=== PATIENT | male | born 1970 | race Caucasian/White ===

== ENCOUNTER 2017-05-04 13:00 | Inpatient (IN) | payer OTHER ==
[~2017-05-04] VITALS: Ht 190.5 cm; Wt 189.9 kg
--- NOTE | ~2017-05-04 | OR ---
PATIENT'S NAME: PHAN HEATH [facility] AGE: 47 Y [address] ROOM: [facility] [address] [place], [place] [address] LOCATION: [facility] ADMIT DATE: 05/04/2017 OR/Procedure Report DISCHARGE DATE: 05/06/2017 FAMILY PHYSICIAN: Lui Watkins MD ATTENDING PHYSICIAN: Clementina Riley SURGEON: Clementina Riley MD PACKAGE DELIVERY DRIVER: Tamara Earl. DATE OF PROCEDURE: 05/05/2017 Corrected Copy - Date of Service Revised- 05/12/17-[facility] [place] PREOPERATIVE DIAGNOSIS: Left L4-5 disk herniation. POSTOPERATIVE DIAGNOSIS: Left L4-5 disk herniation. PROCEDURES PERFORMED: 1. Left L4-5 hemilaminotomy and medial facetectomy for decompression of neural elements with diskectomy. 2. Use of intraoperative microscope. ANESTHESIA: General. ANESTHESIA PROVIDER: Chandler Barboza MD HISTORY: The patient is a 47-year-old gentleman who presented with left-side low back pain going down to the top of the left leg. He also developed a left footdrop. MRI showed a left L4-5 herniated disk with sequestrated fragment behind the L5 vertebral body. Surgery was recommended to reduce the risk of permanent neurological deficit. I explained to the patient that even with surgery, his footdrop may or may not recover, but with surgery, there was a chance it could recover. The patient was agreeable to surgery. He was taken to the operating room today for the procedure. PROCEDURE IN DETAIL: In the operating room, the patient was placed in the supine position. Anesthesia was induced, and he was intubated. He was rolled to a prone position on the Rodney table, taking care to protect all pressure points. The incision line was marked out in the midline of his lower back. He had had prior microdiskectomy, and we used a part of the original incision for this procedure also. Self-retaining retractors were placed. The incision was then deepened to the fascial layer, and the fascia was opened. The tips of the spinous processes were exposed. The paraspinous muscles were dissected off the spinous processes and laminae on the left side of L3, L4, and L5. The interlaminar space at L4-5 was cleaned out. Intraoperative x-ray was obtained to verify our levels. The Super-slide retractors were placed to help maintain visualization. Microscope was brought in, and under microscopic vision, the adjacent edges of PATIENT'S NAME: PHAN HEATH [facility] AGE: 47 Y [address] ROOM: [id number] [place] [id number] LOCATION: [facility] ADMIT DATE: 05/04/2017 OR/Procedure Report DISCHARGE DATE: 05/06/2017 FAMILY PHYSICIAN: Lui Watkins MD ATTENDING PHYSICIAN: Clementina Riley the left L4 and L5 laminae were drilled off. The medial facet connecting them was also drilled down. The ligamentum flavum was removed, and the dura was exposed. Further removal of the medial facet exposed the nerve roots. The nerve root was then mobilized toward the midline using a #4 [place]. We began to see the sequestrated disk fragments at this point. The nerve root retractor was used to hold the nerve root against the dura. The small pituitary rongeur was used to fish out the pieces of sequestrated disk. We got a few a fair-sized pieces of disk without even cutting into the annulus. The annulus was bulging slightly, and this was incised with a #15 blade. The pituitary rongeur was used to remove some more disk material. The Dull nerve hook was then used to explore the ventral surface of the dura to ensure that there were no remaining herniated or sequestrated pieces of disk. Having completed the decompression, foraminotomy was carried out. Again, the bald nerve hook was used to probe the foramen, and it was very free. Hemostasis was achieved. The incision was washed out with irrigation. Some ropivacaine was placed in the epidural space. The incision was then closed with appropriate suture materials. A sterile dressing was applied. The patient was rolled back to a supine position. His anesthesia was reversed. He was extubated and taken to the recovery room to complete his recovery. I was present at and performed every aspect of this procedure, assisted at some stages by operating room nurses. There were no apparent intraoperative complications. Swabs, needles, and instruments were all accounted for at the end of the case. Estimated blood loss was less than 100 mL. There was no reason for blood transfusion. I expect the patient to benefit from this procedure, although it is still uncertain whether his footdrop will come back or not. This was a fairly challenging procedure owing to the patient's body habitus. CLEMENTINA RILEY MD CNO/modl /[id number] PATIENT'S NAME: PHAN HEATH [facility] AGE: 47 Y [address] ROOM: [place] [address] LOCATION: [facility] ADMIT DATE: 05/04/2017 OR/Procedure Report DISCHARGE DATE: 05/06/2017 FAMILY PHYSICIAN: Lui Watkins MD ATTENDING PHYSICIAN: Clementina Riley CC: Lui Watkins MD Corrected Copy - Date of Service Revised- 05/12/17-jmo d: 05/06/17 1127 t: 05/13/17 1645, OPERATIVE SUMMARY
--- NOTE | ~2017-05-04 | HP ---
PATIENT'S NAME: PHAN HEATH [facility] AGE: 47 Y [address] ROOM: [place] [address] LOCATION: [facility] ADMIT DATE: 05/04/2017 History & Physical DISCHARGE DATE: FAMILY PHYSICIAN: Lui Watkins MD ATTENDING PHYSICIAN: Clementina Coello DATE OF SERVICE: 05/04/2017 The patient referred by Dr. Watkins from [place]. REASON FOR REFERRAL: Back pain and footdrop. PATIENT IDENTIFICATION: Phan Heath is a 47-year-old male. PRESENTING COMPLAINT: Back pain and left footdrop. HISTORY OF PRESENT ILLNESS: The patient states that he started feeling left-sided back pain about last , four days ago. The pain would go to the upper part of his leg, but did not travel down the entire leg to his foot. The patient had chiropractic adjustments yesterday and after that, he noticed that he had a left footdrop. He, therefore, saw Dr. Watkins today, and Dr. Watkins referred the patient to [facility] for evaluation and treatment. The patient's pain is a little bit better than it was in the beginning, but he is still unable to dorsiflex his left foot. PAST MEDICAL HISTORY: Significant for prior lumbar diskectomy performed close to 20 years ago. He did well after that procedure. There is no history of cardiac or respiratory problems. CURRENT MEDICATIONS: Please see chart. ALLERGIES: PLEASE SEE CHART. FAMILY HISTORY: There is no family history relevant to present problems. SOCIAL HISTORY: The patient is a nonsmoker and a nondrinker. PATIENT'S NAME: IVANA DAYTON [facility] AGE: 47 Y [address] ROOM: [address] [address] LOCATION: [facility] ADMIT DATE: 05/04/2017 History & Physical DISCHARGE DATE: FAMILY PHYSICIAN: Lui Watkins MD ATTENDING PHYSICIAN: Clementina Coello REVIEW OF SYSTEMS: A 10-point review of systems was carried out. The only abnormal finding was as described in the history of present illness. PHYSICAL EXAMINATION: GENERAL: The patient is a healthy-looking male, who was alert and cooperative through the examination. VITAL SIGNS: Stable. NEUROLOGIC: His speech is normal. Cranial nerves: No deficits seen. Motor examination: The patient has normal strength in all the major muscle groups of his upper extremities and right lower extremity. In the left lower extremity, he has a left footdrop. He is unable to dorsiflex his left foot or pull up his left big toe. He can plantar flex normally. Gait not tested. CARDIOVASCULAR SYSTEM: Heart sounds are present. RESPIRATORY SYSTEM: The patient is not short of breath at bedside. EXTREMITIES: No cyanosis or clubbing. SKIN: No skin rashes or skin masses. HEENT: His head is atraumatic. Eyes and ears: No evidence of trauma. BACK: There is an incision in his lower back corresponding to where he had the prior diskectomy. LABORATORY DATA: Review of imaging studies: The patient has had a lumbar spine MRI performed today. The MRI shows a fairly large left-sided L4-5 disk herniation. There appears to be a sequestrated fragment as well. ASSESSMENT: A 47-year-old male with left L4-5 disk herniation causing a left footdrop. MEDICAL DECISION MAKING: I discussed the imaging findings with the patient, and I explained to him that this was likely the cause of his symptoms. I have recommended lumbar microdiskectomy to the patient. The rationale for the surgery would be to relieve pressure from the nerve root, and the benefits would be to help the footdrop to recover. The risks of the operation include possible delay to inability of the nerve to recover and thereby having a persistent footdrop. There is a small risk of spinal fluid leak, small risk of infection, and a small risk of recurrence. The alternatives are to observe him for a while and see if he improves. But the risk in this is that he may end up never improving, and there will be the question of whether early surgery could have helped him improve sooner. The patient understands these benefits and risks and has agreed to have surgery done. I will schedule him for lumbar microdiskectomy tomorrow. PATIENT'S NAME: PHAN HEATH [facility] AGE: 47 Y [address] ROOM: [id number] [place], [place] [address] LOCATION: [facility] ADMIT DATE: 05/04/2017 History & Physical DISCHARGE DATE: FAMILY PHYSICIAN: Lui Watkins MD ATTENDING PHYSICIAN: Obasi,Clementina N MD WISAM WORRELL/modl /[id number] CC: Lui Watkins MD D: [id number] T: [id number] HISTORY & PHYSICAL
--- NOTE | ~2017-05-04 | DS ---
PATIENT'S NAME: PHAN HEATH [facility] AGE: 47 Y [address] ROOM: [place] [address] LOCATION: [facility] ADMIT DATE: 05/04/2017 Discharge Summary DISCHARGE DATE: 05/06/2017 FAMILY PHYSICIAN: Lui Watkins MD ATTENDING PHYSICIAN: Clementina Coello REASON FOR ADMISSION: The patient was admitted with low back pain and left footdrop. TREATMENT RENDERED: The patient had an MRI scan which showed a left L4-5 disk herniation, likely because of the footdrop. Surgery was recommended to the patient. He was taken to the operating room on May 05, 2017, and underwent a left L4-5 microdiskectomy. The surgery was uncomplicated. His postoperative course has been uneventful. He is ambulating independently, although he still has a footdrop. His incision is intact and clean. The dressing was changed. DISMISSAL PLAN: The patient is being discharged home today and will be followed up in 2 weeks' time in the outpatient clinic. His pain is controlled. FINAL DIAGNOSES: 1. Herniated left L4-5 disk. 2. Left footdrop. CLEMENTINA COELLO MD CNO/modl /[id number] CC: Lui Watkins MD d: 05/07/17 0216 t: 05/13/17 1648, DISCHARGE SUMMARY
[2017-05-04] MEDS ORDERED: XANAX0.5 MG PO (14:29)
[2017-05-04] MEDS ORDERED: ZOLOFT100 MG PO (14:30)
[2017-05-04] MEDS ORDERED: LEVOTHROID (S137 MCG PO (14:30)
[2017-05-04] MEDS ORDERED: NORCO 5-325 TA1 EACH PO (14:31)
[2017-05-04] MEDS ORDERED: ADVIL200 MG PO (14:32)
[2017-05-04] MEDS ORDERED: [UNRECOGNIZED DRUG - OTHER] PO (14:33)
[2017-05-04] MEDS ORDERED: JUICE PLUS PO (14:34)
--- NOTE | 2017-05-04 15:20 | NUR ---
Pt is 47 y/o male admit for acute left foot drop/back pain for . pt alert and oriented x3. No allergies. Pt resides at home with his . Hx depression,anxiety,hypothyroidism. Pt was supposed to come here for an MRi and was admitted.
--- NOTE | 2017-05-04 16:48 | NUR ---
Significant Event: Admitted for L) foot drop and back pain. Patient had went to the chiropractor yesterday and noticed that he could not dorsiflex. He has no numbness or tingling in left foot. Is going to have MRI. Complains of some L) hip pain. [place] given for pain. Had back surgery in 1997. VSS. CSM WNL. SBA assist. Follow up:
[2017-05-04 20:02] LABS: BASOPHIL # 0.1 K/uL (0.0-0.2); BASOPHIL % 1.3 %; EOSINOPHIL # 0.1 K/uL (0.0-0.5); EOSINOPHIL % 1.4 %; HEMATOCRIT 43.6 % (37.0-53.0); HEMOGLOBIN 14.3 g/dL (12.0-17.0); IMMATURE GRANULOCYTE % 0.3 %; LYMPHOCYTE # 2.6 K/uL (0.8-4.0); LYMPHOCYTE % 29.9 %; MCH 31.2 pg (27.0-34.0); MCHC 32.8 gm/dL (32.0-36.5); MONOCYTE # 0.6 K/uL (0.0-1.0); MONOCYTE % 6.9 %; MPV 10.1 fl (9.4-12.4); NEUTROPHIL # (ANC) 5.3 K/uL (1.4-9.0); NEUTROPHIL % 60.2 %; NRBC % 0 /100WBC (0-0.00); PLATELET COUNT 274 K/uL (150-450); RBC 4.59 M/uL (4.00-6.00); RDW-CV 12.5 % (11.9-14.6); WBC 8.8 K/uL (4.0-11.0)
[2017-05-04 20:10] LABS: INR - (THERAPEUTIC) 0.95 (0.92-1.07); PTT 28 SECONDS (25-32)
[2017-05-04 20:19] LABS: ALBUMIN 3.5 gm/dL (3.5-5.0); ALK PHOS 97 IU/L (33-138); ALT 53 IU/L (12-78); ANION GAP 10.3 (10.0-19.0); AST 39 IU/L (10-40); BLOOD UREA NITROGEN 17 mg/dL (6-24); CALCIUM 8.9 mg/dL (8.5-10.5); CHLORIDE 106 mMol/L (96-110); CO2 31 mMol/L (22-32); CREATININE 1.1 mg/dL (0.6-1.3); ESTIMATED GFR (MDRD EQUATION) > 60; POTASSIUM 4.3 mMol/L (3.7-5.1); SODIUM 143 mMol/L (135-145); TOTAL BILIRUBIN 0.2 mg/dL (0.0-1.5); TOTAL PROTEIN 7.1 g/dL (6.0-8.4)
--- NOTE | 2017-05-05 05:08 | NUR ---
Significant Event: Patient is alert and oriented x3. Follows commands. PERRLA. VSS. Denies MARTINEZ. Pain is localized to the right hip. Numbness to the left great toe. SR-no edema, 2+ pulses. Room air-clear. NPO for surgery. Last BM 05/04-active x4. CHG shower given. Up with SBA. PIV in left FA-NS started at 75 ml/hr. Refused hospital CPAP-asked patient to have daughter bring his from home. Follow up: Surgery today around 1100.
--- NOTE | 2017-05-05 19:13 | NUR ---
Pt left for OR at 1000. Remained NPO, VSS. MS 4mg IV at 0650 for pain 4-7/10 in L groin/hip area. Reported relief. Pt has good plantar flexion, numbness to Great toe, foot drop noted to L foot. Spouse at bedside.
--- NOTE | 2017-05-06 04:53 | NUR ---
Significant Event: Patient is alert and oriented x3. VSS. Denies MARTINEZ. Pain has been controlled with PO norco. Numbness to the left toes has decreased- foot drop has improved. SR-2+ pulses- no edema. Room air- CPAP on at NOC-clear. Regular diet. Last BM 05/04-active x4. Takes pills whole with water. SBA-ambulated in hallway a couple times this shift. L) FA PIV-sl'd. Dressing to the lower back- C/D/I. Follow up: AMB. Possible D/C to home today.
--- NOTE | 2017-05-06 14:18 | NUR ---
Introduced self and role of care management to pt and . He is dressed ready to go home and denies needs. He asked about outpt therapy and I explained that will need to come from the md. WIll assist as needed.
== END 2017-05-06 13:00 | disposition disaster alternative care site (69) | DRG 520 ==
LOC: EDSTATUS 13:00 → GNTU 13:45
PROVIDERS: ADMIT Neurological Surgery
PROC: 0SB20ZZ Excision of Lumbar Vertebral Disc, Open Approach (ICD-10-PCS; principal; 2017-05-06)
PROC: 01NB0ZZ Release Lumbar Nerve, Open Approach (ICD-10-PCS; principal; 2017-05-06)
DX: M51.26 Other intervertebral disc displacement, lumbar region (principal); M21.372 Foot drop, left foot
CPT/HCPCS: J0690; J1100; J2250; J2270; J2405; J7030; J7040; J7120